=== PATIENT | female | born 1950 | race Caucasian/White ===

== ENCOUNTER 2016-12-22 22:45 | Emergency (ER) | payer MEDICARE ==
[2016-12-22] MEDS ORDERED: ALBUTEROL/IPRATROPIUM 2.5/0.5 MG 3 ML/EACH DOSE ONE (23:17)
[2016-12-23 00:48] LABS: ABSOLUTE NEUTROPHIL COUNT 6.1 K/mm3 (1.8-7.7); BASO % 0.2 % (0.2-1.0); EOS % 0.5 % (0.9-2.9); HEMATOCRIT 33.7 % (37.0-47.0); IMM NEUT% 0.4 % (0-1); LYMPH # 1.2 (1.0-4.8); LYMPH % 14.9 % (15-45); MEAN CELL VOLUME 93.6 fl (81.0-99.0); MEAN CORPUSCULAR HEMOGLOBIN 30.6 pg (27.0-31.0); MEAN CORPUSCULAR HGB CONC 32.6 g/dl (33.0-37.0); MEAN PLATELET VOLUME 9.7 fl (7.4-10.4); MONO # 0.9 (0.0-0.8); MONO % 10.4 % (4-12); NEUT % 73.6 % (43-75); PLATELET COUNT 161 K/mm3 (130-400); RED CELL DISTRIBUTION WIDTH 13.2 % (11.5-14.5)
[2016-12-23 01:02] LABS: ALB/GLOB RATIO 1.4 (>1.0); ALBUMIN 3.8 gm/dL (3.5-5.7); CALCIUM 9.3 mg/dL (8.6-10.3)
--- NOTE | 2016-12-23 06:22 | RAD ---
CHEST - 2 VIEWS COMPARISON: Chest one view 04/25/2016 HISTORY: Cough. FINDINGS: Views: Frontal and lateral chest Lungs: Normal Heart and vessels: Cardiomegaly. Vessels are not enlarged. Trachea and bronchi: Normal Mediastinum and noni: Normal Costophrenic sulci: Normal Chest wall and bones: No acute finding. Degenerative changes in the thoracic spine. Upper abdomen: Normal. IMPRESSION: Borderline cardiomegaly. No pulmonary infiltrate. No pulmonary edema.
== END 2016-12-23 02:51 | disposition home or self-care (01) ==
LOC: ED 22:45
DX: J11.1 Influenza due to unidentified influenza virus with other respiratory manifestations (principal); I48.91 Unspecified atrial fibrillation; E11.9 Type 2 diabetes mellitus without complications; E78.5 Hyperlipidemia, unspecified; I10 Essential (primary) hypertension; E66.9 Obesity, unspecified; F41.9 Anxiety disorder, unspecified; F32.9 Major depressive disorder, single episode, unspecified